=== PATIENT | male | born 1995 | race Caucasian/White ===

== ENCOUNTER 2025-01-11 11:05 | Emergency (ER) | payer OTHER ==
[~2025-01-11] VITALS: Ht 180.3 cm; Wt 89.0 kg
[2025-01-11 11:20] VITALS: O2SAT 99
[2025-01-11] MEDS: ACETAMINOPHEN 500MG TABLET PO ONE (12:26)
[2025-01-11] MEDS ORDERED: ACET-2708 MT (13:36)
[2025-01-11] MEDS ORDERED: BO1 TP (13:36)
[2025-01-11 13:40] VITALS: BP 102/61; PULSE 50; RESP 20; TEMP 36.9; O2SAT 99
== END 2025-01-11 14:15 | disposition home or self-care (01) ==
LOC: ER 11:05
DX: S62.002A Unspecified fracture of navicular [scaphoid] bone of left wrist, initial encounter for closed fracture (principal); J45.909 Unspecified asthma, uncomplicated; Z88.1 Allergy status to other antibiotic agents; Z90.49 Acquired absence of other specified parts of digestive tract; V87.8XXA Person injured in other specified noncollision transport accidents involving motor vehicle (traffic), initial encounter; Y93.55 Activity, bike riding; Y92.89 Other specified places as the place of occurrence of the external cause; Y99.8 Other external cause status
CPT/HCPCS: 73130; 73610; 29125; 99284; Z7610 ×2; A6449